=== PATIENT | male | born 1980 | race Caucasian/White ===

== ENCOUNTER 2016-06-29 15:46 | Emergency (ER) | payer OTHER ==
[~2016-06-29] VITALS: Ht 175.3 cm; Wt 61.2 kg
[2016-06-29 15:46] VITALS: BP 123/62
--- NOTE | 2016-06-29 15:58 | PHYS DOC ---
Past History Past Medical History: Constipation Past Surgical History: No Surgical History Smoking: Non-smoker, Chew Alcohol Use: None Drug Use: None Adult General Chief Complaint Chief Complaint: FOOT INJURY PAIN HPI HPI Patient is a 36-year-old male who ambulates into the emergency department with a complaint of left foot pain for 3 weeks. About 3 weeks ago, the patient was at work, he was stepping up onto the tailgate of his truck, the surface was wet , his foot slipped and he fell sideways, striking his side of his left foot on the metal tailgate. He was wearing low-cut tennis shoes at the time. It hurt a lot right away but he just kept working, it has continued to have pain and swelling for the last 3 weeks. Yesterday, he had a shooting pain from the lateral side of his heel up into his ankle which concerned him. Review of Systems Review of Systems Musculoskeletal: Denies any other injury except left foot Allergies Allergies Allergies Coded Allergies Type Severity Reaction Last Updated Verified promethazine Allergy Intermediate 09/21/15 Yes Physical Exam Physical Exam Constitutional: Well developed, well nourished, no acute distress, non-toxic appearance. Alert, mentating normally, ambulatory with a small limp. HENT: Normocephalic, atraumatic, bilateral external ears normal, nose normal. [] Eyes: conjunctiva normal, no discharge. [] Neck: Normal range of motion, no stridor. [] Skin: Warm, dry, no erythema, no rash. [] Extremities: Left foot has minimal swelling across the base of the toes and resolving ecchymosis. Tenderness to palpation across the dorsal foot at the base of the toes, and down the lateral aspect of the foot. No tenderness or swelling of the ankle. Foot is without redness, no evidence of cellulitis. Neurologic: Alert and oriented X 3, normal motor function, normal sensory function, no focal deficits noted. [] EKG EKG [] Radiology/Procedures Radiology/Procedures Three-view x-ray of the left foot read by me. No acute bony abnormality. [] Course & Med Decision Making Course & Med Decision Making Pertinent Labs and Imaging studies reviewed. (See chart for details) [] Dragon Disclaimer Dragon Disclaimer This chart was dictated in whole or in part using Voice Recognition software in a busy, high-work load, and often noisy Emergency Department environment. It may contain unintended and wholly unrecognized errors or omissions. Departure Departure: Impression: Primary Impression: Contusion of left foot Disposition: HOME, SELF-CARE Condition: STABLE Referrals: PCP,NO (PCP) Patient Instructions: Contusion, [id number] Additional Instructions: Today, x-rays did not show any broken bone in the foot. The radiologist will read the x-rays tomorrow and if anything is seen by the radiologist that I did not see, we will contact you. Since your foot has continued to hurt for 3 weeks, I do recommend that you follow up with an orthopedic or medicaid eligibility specialist. Ice your foot when possible, stay off of it when possible. Ibuprofen 600 mg every 6-8 hours as needed for pain. CARLEE CORBIN MD June 29, 2016 15:58
--- NOTE | 2016-06-30 08:35 | RAD ---
Indication: Left foot pain for 2 weeks. Technique: 3 views of the left foot are submitted for review. No comparison is available. Findings: There is no fracture or dislocation. There is no soft tissue swelling. Impression: Negative for fracture.
== END 2016-06-29 17:01 | disposition home or self-care (01) ==
LOC: ER 15:46
DX: S90.32XA Contusion of left foot, initial encounter (principal); F17.220 Nicotine dependence, chewing tobacco, uncomplicated; Z88.8 Allergy status to other drugs, medicaments and biological substances; W01.198A Fall on same level from slipping, tripping and stumbling with subsequent striking against other object, initial encounter; Y93.89 Activity, other specified; Y99.8 Other external cause status; Y92.480 Sidewalk as the place of occurrence of the external cause
CPT/HCPCS: 73630; 99284